=== PATIENT | male | born 1975 | race Caucasian/White ===

== ENCOUNTER → 2016-07-02 | Outpatient (CLI) | payer OTHER | END | disposition home or self-care (01) | LOC: CDC 15:23 | DX: Z01.810 Encounter for preprocedural cardiovascular examination (principal); M25.511 Pain in right shoulder; S43.431D Superior glenoid labrum lesion of right shoulder, subsequent encounter; M75.41 Impingement syndrome of right shoulder | CPT/HCPCS: 93000 ==